=== PATIENT | male | born 1980 | race African-American/Black ===

== ENCOUNTER 2022-07-13 14:44 | Emergency (ER) | payer SELFPAY | END 2022-07-13 15:38 | disposition home or self-care (01) | LOC: MADERS 14:44 | DX: S40.211A Abrasion of right shoulder, initial encounter (principal); F17.210 Nicotine dependence, cigarettes, uncomplicated; W26.8XXA Contact with other sharp object(s), not elsewhere classified, initial encounter; Y99.0 Civilian activity done for income or pay | CPT/HCPCS: 99282 ==